=== PATIENT | female | born 1985 ===

== ENCOUNTER 2021-05-04 06:11 | Inpatient (IN) | payer OTHER ==
[~2021-05-04] VITALS: Ht 167.6 cm; Wt 85.0 kg
[2021-05-04] VITALS (58 sets, daily range): BP systolic 91–129; BP diastolic 50–75; PULSE 60–87; TEMP 97.4–98.1
--- NOTE | 2021-05-04 06:30 | NUR ---
0630-, 38.0, here for scheduled induction for IUGR. Ambulates to LDR6 with spouse. Oriented to room. Changed into gown. Patient ghanshyam LOF,VB,regular ctx, or decreased movement. EFM/TOCO explained and applied. 0650-IV started. Blood obtained and to lab. IV fluids started. Assessments completed. Consents explained and signed. Plan of care discussed. 0710- at bedside assessing FHR and patient. SVE /-2. AROM at this time. Plan of care discussed, patient verbalizes understanding. 0718-Pitocin explained to patient, patient verbalizes understanding. Pitocin started at 2 mu per protocol. No adverse reactions at this time.
[2021-05-04] MEDS ORDERED: PRENATAL TABLET PO (07:01)
[2021-05-04 07:37] LABS: BASO # 0.1 K/mm3 (0.0-0.2); BASO % 0.5 % (0.0-2.0); EOS # 0.4 K/mm3 (0.0-0.7); EOS % 3.3 % (0-4.0); GRAN # 8.3 K/mm3 (1.4-6.5); HEMOGLOBIN 10.5 g/dl (12.5-16.0); LYMPH % 16.9 % (20.0-51.0); MEAN CELL VOLUME 83 fl (80.0-100.0); MEAN CORPUSCULAR HEMOGLOBIN 27 pg (27.0-31.0); MEAN CORPUSCULAR HGB CONC 32 g/dl (33.0-37.0); MEAN PLATELET VOLUME 11.2 fl (7.4-10.4); MONO # 0.8 K/mm3 (0.1-0.6); MONO % 6.6 % (1.7-9.3); PLATELET COUNT 271 K/mm3 (130-400); RED BLOOD COUNT 3.92 M/mm3 (4.10-5.30); REDCELL DISTRIBUTION WIDTH-CV 13.2 % (11.5-14.5)
[2021-05-04 07:47] LABS: HEMATOCRIT 32.7 % (37.0-47.0)
--- NOTE | 2021-05-04 10:15 | NUR ---
1015-Difficulty tracing ctx due to maternal position. This RN at bedside adjusting TOCO.
--- NOTE | 2021-05-04 10:20 | NUR ---
1020-Patient requesting epidural at this time. Discussed plan of care and prepared patient. IV fluid bolus started. 1036-CIRO Ro at bedside. Patient positioned for epidural placement. Difficulty tracing FHR due to maternal position. 1041-Single shot given by CIRO Ro. Patient tolerated well, no adverse reactions noted. 1050-Patient repositioned in bed. EFM/TOCO readjusted. Plan of care discussed.
--- NOTE | 2021-05-04 12:21 | NUR ---
1140: THIS RN TOOK OVER CARE OF PT. FOR LUNCH RELIEF 1210: MAIN RN (ALMA DELIA) RESUMED CARE OF PT. CARE RELINQUISHED AT THIS TIME
--- NOTE | 2021-05-04 12:30 | NUR ---
1230-Difficulty tracing ctx due to maternal position. RN at bedside adjusting TOCO and repositioning patient.
--- NOTE | 2021-05-04 13:15 | NUR ---
1315-Difficulty tracing ctx due to maternal position. This RN at bedside adjusting TOCO.
--- NOTE | 2021-05-04 14:31 | NUR ---
Contractions palpate mild/moderate. Pitocin at 26mu. Pitocin bag changed.
--- NOTE | 2021-05-04 16:00 | NUR ---
1600-Difficulty tracing ctx due to maternal position. This RN at bedside adjusting TOCO.
--- NOTE | 2021-05-04 16:15 | NUR ---
Subtle FHR decels. Ctx tracing intermittently. Difficult to determine fhr decel onset. RN at bedside adjusting TOCO.
--- NOTE | 2021-05-04 17:44 | NUR ---
1743- Dr. Sheikh on unit and reviews strips. Provider to patient bedside and reviews POC. SVE per Dr. Sheikh /+1. Emily care and patient repositioned. 1757- Patient calls RN to bedside and reports increased rectal pressure. SVE by this RN C/+2. Dr. Sheikh remains at nurses desk and notified. 1799- Dr. Sheikh to patient room. Patient repositioned in footplates and instructed on pushing with contractions. 1801- Spontaneous vaginal delivery of viable female over intact perineum. Body cord noted. Nares and mouth bulb suctioned by Dr. Sheikh. Pitocin paused. 1803- Cord clamped x2 and cut. to mother's chest where dried and stimulated by nursery RN. Care of assumed by Kailey Valencia RN. 1804- Spontaneous and intact delivery of placenta. Pitocin to 333ml/hr per orders. Fundus firm, midline, and bleeding minimal. Emily care provided, pads changed, and patient repositioned in bed. Plan of care and safety precautions reviewed. See doctor dictation, anesthesia record, and nurses notes. 1814- Report to Jayshree GARCIA who assumes care of patient.
--- NOTE | 2021-05-04 20:22 | NUR ---
DINNER HERE, MOTRIN GIVEN PER ORDER. DENIES ANY NEEDS AT THIS TIME
--- NOTE | 2021-05-04 21:15 | NUR ---
HAS FINISHED NURSING BABY, PADS CHANGED, PANTIES ON OUT OF BED, LEFT LEG STILL A LITTLE NUMB. PIVOTS TO WHEELCHAIR THEN TRANSFERRED TO ROOM 207 PER WHEELCHAIR WITH AND
--- NOTE | 2021-05-05 00:45 | NUR ---
Assumed care at this time.
[2021-05-05 01:10] VITALS: BP 105/48; PULSE 75; TEMP 97.9
[2021-05-05 04:50] VITALS: BP 111/63; PULSE 68; TEMP 98
[2021-05-05 08:00] VITALS: BP 107/59; PULSE 72; TEMP 97.3
[2021-05-05] MEDS ORDERED: MOTRIN 800800 MG/TAB PO (08:32)
--- NOTE | 2021-05-05 10:09 | NUR ---
Initial visit; Parents thanked [employer] for offering congratulations and God's blessings for the of their daughter. [employer] thanked family for choosing [facility].
[2021-05-05 12:17] VITALS: BP 116/64; PULSE 69; TEMP 97.4
[2021-05-05 16:00] VITALS: BP 111/63; PULSE 68; TEMP 98
[2021-05-05 19:52] VITALS: BP 112/62; PULSE 68; TEMP 98.1
[2021-05-06 04:00] VITALS: BP 118/68; PULSE 70; TEMP 97.8
[2021-05-06 07:00] VITALS: BP 108/68; PULSE 68; TEMP 97.5
--- NOTE | 2021-05-06 16:00 | NUR ---
DISCHARGE TEACHING COMPLETED. PATIENT EDUCATED ON FOLLOW UP APPOINTMENT AND PRESCRIPTIONS. QUESTIONS INVITED AND ANSWERED.
== END 2021-05-06 16:15 | disposition home or self-care (01) | DRG 807 ==
LOC: LDR 06:11 → OB 06:11 → LDR 06:26 → OB 11:14
PROVIDERS: ADMIT Obstetrics & Gynecology
PROC: 10E0XZZ Delivery of Products of Conception, External Approach (ICD-10-PCS; principal; 2021-05-04)
PROC: 3E033VJ Introduction of Other Hormone into Peripheral Vein, Percutaneous Approach (ICD-10-PCS; 2021-05-04)
PROC: 10907ZC Drainage of Amniotic Fluid, Therapeutic from Products of Conception, Via Natural or Artificial Opening (ICD-10-PCS; 2021-05-04)
DX: O36.5930 Maternal care for other known or suspected poor fetal growth, third trimester, not applicable or unspecified (principal); Z37.0 Single live birth; Z3A.38 38 weeks gestation of pregnancy
CPT/HCPCS: J2590; J2795; J7120